=== PATIENT | female | born 1960 | race Caucasian/White ===

== ENCOUNTER 2025-04-15 16:10 | Outpatient (CLI) | payer MEDICARE | END 2025-04-15 16:11 | disposition home or self-care (01) | LOC: BURRAD 16:10 | PROVIDERS: ATTEND Nurse Practitioner Family | DX: M79.671 Pain in right foot (principal) ==

== ENCOUNTER 2025-04-18 12:04 | Outpatient (CLI) | payer MEDICARE | END 2025-04-18 12:05 | disposition home or self-care (01) | LOC: BURRAD 12:04 | PROVIDERS: ATTEND Nurse Practitioner Family | DX: M79.672 Pain in left foot (principal) ==